=== PATIENT | female | born 1960 | race African-American/Black ===

== ENCOUNTER 2019-09-17 14:33 | Observation (INO) ==
[2019-09-17 15:42] LABS: Basophils % 0.9 % (0.0-0.8); Eosinophils # 0.2 10*3/uL (0.0-0.87); Eosinophils % 4.6 % (0.00-10.9); Hematocrit 38.4 VOL% (35.7-47.0); Hemoglobin 12.3 GM/DL (12.0-16.0); Immature Granulocytes % 0.4 %; Immature Granulocytes Absolute 0.02 #; Lymphocytes % 44.4 % (21.3-54.2); Mean Corpuscular Volume 81.9 FL (87-102); Mean Platelet Volume 11.2 FL (9.6-12.0); Monocytes % 11.2 % (1.7-12.7); Neutrophils % 38.5 % (38.7-73.9); Platelet Count 269 T/CUMM (130-400); Red Blood Count 4.69 MC/CUMM (3.8-5.5); Red Cell Distribution Width 14.2 % (9.3-17.3); White Blood Count 4.6 T/CUMM (4-12)
[2019-09-17 15:50] LABS: PT Patient Result 10.9 SECS (9.8-11.9)
[2019-09-17] MEDS ORDERED: ACETAMINOPHEN 325 MG TABLET PO PRN (15:54)
[2019-09-17] MEDS ORDERED: ONDANSETRON 4 MG/2 ML VIAL IV PRN (15:54)
[2019-09-17 16:05] LABS: Albumin 3.9 G/DL (3.4-5.0); Bilirubin,Total 0.4 MG/DL (0.2-1.0); Calcium 9.7 MG/DL (8.5-10.1); Osmolality,Calculated 278.5 MOS/KG (273-304); Total Protein 8.5 G/DL (6.4-8.3)
[2019-09-17 16:10] LABS: Eosinophils 4 % (0-10); Lymphocytes 44 % (20-55); Platelet Estimate Adequate; Reactive Lymphocytes Few; Segmented Neutrophils 37 % (50-85); Total Cells Counted 100
[2019-09-17] MEDS: DOCUSATE SODIUM 100 MG CAPSULE PO SCH (21:38)
[2019-09-17] MEDS: HYDROCORTISONE 2.5% RECTAL CREAM 30 GM TUBE TOP SCH (21:38)
[2019-09-17] MEDS ORDERED: POTASSIUM CHLORIDE 20 MEQ TABLET PO ONE (22:30)
[2019-09-17] MEDS: cloNIDine 0.1 MG TABLET PO SCH (23:11)
[2019-09-17] MEDS: APIXABAN 2.5 MG TABLET PO SCH (23:11)
[2019-09-18 05:33] LABS: Basophils % 0.7 % (0.0-0.8); Eosinophils # 0.2 10*3/uL (0.0-0.87); Eosinophils % 4.4 % (0.00-10.9); Hematocrit 35.5 VOL% (35.7-47.0); Hemoglobin 11.1 GM/DL (12.0-16.0); Immature Granulocytes % 0.2 %; Immature Granulocytes Absolute 0.01 #; Lymphocytes # 2.6 10*3/uL (1.4-4.0); Lymphocytes % 47.8 % (21.3-54.2); Mean Corpuscular HGB Conc 31.3 GM/DL (32-36); Mean Corpuscular Volume 84.5 FL (87-102); Mean Platelet Volume 11.4 FL (9.6-12.0); Monocytes % 10.9 % (1.7-12.7); Platelet Count 241 T/CUMM (130-400); Red Cell Distribution Width 14.3 % (9.3-17.3); White Blood Count 5.4 T/CUMM (4-12)
[2019-09-18 06:00] LABS: Eosinophils 5 % (0-10); Lymphocytes 46 % (20-55); Segmented Neutrophils 39 % (50-85); Total Cells Counted 100
[2019-09-18 06:01] LABS: Atypical Lymphocytes Few; Hypochromasia 1+; Platelet Estimate Adequate
[2019-09-18 06:10] LABS: Calcium 9.2 MG/DL (8.5-10.1); Osmolality,Calculated 281.3 MOS/KG (273-304)
[2019-09-18] MEDS: POTASSIUM CHLORIDE 20 MEQ TABLET PO SCH (09:02)
[2019-09-18] MEDS: GABAPENTIN 300 MG CAPSULE PO SCH ×3 (09:02→21:50)
[2019-09-18] MEDS: ASPIRIN EC 81 MG TABLET PO SCH (09:02)
[2019-09-18] MEDS: DOCUSATE SODIUM 100 MG CAPSULE PO SCH ×2 (09:02→21:50)
[2019-09-18] MEDS: APIXABAN 2.5 MG TABLET PO SCH ×2 (09:02→21:50)
[2019-09-18] MEDS: NEBIVOLOL 5 MG TABLET PO SCH (09:02)
[2019-09-18] MEDS: LORATADINE 10 MG TABLET PO SCH (09:02)
[2019-09-18] MEDS: PANTOPRAZOLE 40 MG TABLET PO SCH (09:05)
[2019-09-18] MEDS: HYDROCORTISONE 2.5% RECTAL CREAM 30 GM TUBE TOP SCH (09:05)
[2019-09-18] MEDS: HYDROCORTISONE 25 MG SUPP RECTAL SCH ×2 (11:38→21:50)
[2019-09-18 17:10] LABS: Apearance,Urine CLEAR (Clear); Bilirubin,Urine Negative (Negative); Blood, Urine Negative (Negative); Glucose,Urine (UA) Negative (Negative); Ketones,Urine Negative (Negative); Mucus,Urine Occasional /LPF (Occasional); Nitrite,Urine Negative (Negative); Protein,Urine Negative; RBC,Urine 2 /HPF (0-4); Squamous Epithelial Cell,Urine Occasional /HPF (0-10); Urine Color Yellow (Yellow); Urine Specific Gravity 1.024 (1.001-1.035); Urine Urobilinogen < 2.0 EU/DL (0.2-1.0); WBC,Urine 1 /HPF (0-6)
[2019-09-18] MEDS ORDERED: MAGNESIUM HYDROXIDE SUSP 30 ML UDCUP PO PRN (18:13)
[2019-09-18] MEDS: cloNIDine 0.1 MG TABLET PO SCH (21:50)
[2019-09-19 06:14] LABS: Osmolality,Calculated 282.3 MOS/KG (273-304)
[2019-09-19] MEDS: POTASSIUM CHLORIDE 20 MEQ TABLET PO SCH (09:14)
[2019-09-19] MEDS: APIXABAN 2.5 MG TABLET PO SCH (09:14)
[2019-09-19] MEDS: NEBIVOLOL 5 MG TABLET PO SCH (09:14)
[2019-09-19] MEDS: ASPIRIN EC 81 MG TABLET PO SCH (09:15)
[2019-09-19] MEDS: GABAPENTIN 300 MG CAPSULE PO SCH ×2 (09:16→15:50)
[2019-09-19] MEDS: PANTOPRAZOLE 40 MG TABLET PO SCH (09:16)
[2019-09-19] MEDS: LORATADINE 10 MG TABLET PO SCH (09:16)
[2019-09-19] MEDS: HYDROCORTISONE 25 MG SUPP RECTAL SCH (09:22)
[2019-09-19] MEDS: DOCUSATE SODIUM 100 MG CAPSULE PO SCH (11:27)
[2019-09-19 12:17] VITALS: BP 138/77
== END 2019-09-19 17:17 | disposition home health service (06) ==
LOC: N.ED 14:33 → N.EDINP 14:33 → N.3E 17:22
PROVIDERS: ADMIT Internal Medicine; ATTEND Internal Medicine